=== PATIENT | male | born 1960 | race Caucasian/White ===

== ENCOUNTER 2016-11-28 09:16 | Observation (INO) | payer BC ==
[~2016-11-28] VITALS: Ht 175.3 cm; Wt 115.7 kg
[~2016-11-28 09:16] MED LIST: DULO30CA; ENAL5TAB PO; ESCI20TA2 PO
[2016-11-28] MEDS ORDERED: PATIENT MAY USE OWN MEDS, ALL PO SCH (09:30)
--- NOTE | 2016-11-28 09:37 | History & Physicial ---
History of Present Illness History of Present Illness Reason for visit/HPI 56-year-old male presents to office today with reports of painful right neck. He does report he thinks he may have an abscess starting. He reported the pain was fairly significant last night and it has extended down the anterior midportion of his neck as well. He denies any fever and there has been no drainage from the area on the right side of the neck posteriorly. He thought perhaps a while back there may have been something small in the area. He does do quite a bit of hunting and he does wrap up fairly tight around the neck due to the cold weather. Date of Admission November 28, 2016 I consulted on this patient on 11/28/16 09:33 Attending Physician Darlin Felix MD Admitting Physician Darlin Felix MD Consult Josh Garcia Allergies and Home Medications Allergies Coded Allergies: No Known Drug Allergies (Verified , 03/06/16) Home Medications Enalapril Maleate 5 Mg Tablet 2.5 MG PO DAILY (Reported) Escitalopram Oxalate 20 Mg Tablet 20 MG PO DAILY (Reported) Past Tqsnufw-Sjtjfk-Kypbzw Hx Patient Social History Marrital Status: Number of Children: 3 Number of living children: 3 Employed/Student: employed Recreational Drug Use: No Surgeries HX Surgeries: No (SX ON FINGER ON L HAND, BASKET KIDNEY STONES X2) Respiratory Hx Respiratory Disorders: Yes (SLEEP APNEA-CPAP) Cardiovascular Hx Cardiovascular Disorders: No Neurological Hx Neurological Disorders: Yes (ANXIETY ) Reproductive System Hx Reproductive Disorders: No Genitourinary Hx Genitourinary Disorders: Yes (STONES X 2 (BASKET DONE X 2)) Genitourinary Disorders: Kidney Stones, Epi/Hypospadias Gastrointestinal Hx Gastrointestinal Disorders: Yes Gastrointestinal Disorders: Gall Bladder Disease Musculoskeletal Hx Musculoskeletal Disorders: No Musculoskeletal Disorders: Osteoporosis, Arthritis Endocrine Hx Endocrine Disorders: No HEENT HX ENT Disorders: No Cancer Hx Cancer: No Psychosocial Hx Psychiatric Problems: Yes Behavioral Health Disorders: Anxiety Integumentary HX Skin/Integumentary Disorder: No Blood Transfusions Hx Blood Disorders: No Family Medical History Family Hx: Diabetes mellitus 19 MOTHER Constitutional: see HPI Physical Exam Vital Signs Capillary Refill : General Appearance: No Apparent Distress Eyes: Bilateral Eye Normal Inspection HEENT: TMs Normal Neck: Other (patient has a 6 cm x 6 cm area primarily firmwith overlying erythema to the posterior right neck.) Respiratory: Lungs Clear Cardiovascular: Regular Rate, Rhythm Gastrointestinal: Soft Rectal: Deferred Skin: Normal Color Assessment/Plan Assessment and Plan 1. Abscess right posterior neckextensive -patient to be admitted for observation -IV to be started with antibiotics after evaluation by surgery -Surgical consultation with Dr. Garcia -Patient to have CT of the neck to further clarify the extent of the abscess. Admission Diagnosis 1. Abscess right posterior neckextensive DARLIN FELIX MD Nov 28, 2016 09:37
--- OUTSIDE RECORDS SUMMARY | 2016-11-28 10:17 | XMS REPORT | Continuity of Care Document ---
Author Author [facility] Organization [facility] Address Unknown Phone Unavailable Care Team Providers Care Retail Team Member Name Role Phone DARLIN FELIX MD PCP Insurance Providers Payer Name Policy Number Subscriber Name Relationship [facility] [id number] Ulysses Mullen 18 Self / Same As Patient Advance Directives Directive Response Recorded Date/Time Advance Directives No 04/13/15 12:24pm Resuscitation Status Full Code 04/13/15 12:24pm Problems No known problems or medical conditions. Medications Medication Dose Route Sig Days/Qty Instructions Order Date Discontinued Date Status Duloxetine HCl 08/20/08 04/13/15 Discontinued Escitalopram Oxalate 1 Each PO DAILY 30 Qty 04/13/15 04/13/15 Discontinued Escitalopram Oxalate 20 Mg PO DAILY 04/13/15 Active Social History Social History Problem Response Recorded Date/Time Recent Foreign Travel No 04/13/2015 12:36pm Recent Infectious Disease Exposure No 04/13/2015 12:25pm Hospitalization with Isolation Denies 04/15/2015 6:12pm Smoking Status Never a Smoker 04/13/2015 12:33pm Query Response Start Date Stop Date Smoking Status Never a Smoker Hospital Discharge Instructions No hospital discharge instructions. Plan of Care Discharge Date 04/15/15 3:35pm Disposition 30 STILL A PATIENT Instructions/Education Provided Hydrocele (GEN) Forms Provided PDI Surgical Prescriptions See Medications Section Functional Status No functional status results. Allergies, Adverse Reactions, Alerts Allergen Type Severity Reaction Status Last Updated No Known Drug Allergies Allergy Unknown Active 08/20/08 Immunizations No immunization records. Vital Signs Acute Vital Signs Vital Response Date/Time Temperature (Fahrenheit) 98.6 degrees F (97.6 - 99.5) Temperature (Calculated Celsius) 37.17014 degrees C (36.4 - 37.5) Temperature Source Tympanic Pulse Rate (adult) 81 bpm (60 - 90) Respiratory Rate 20 bpm (12 - 24) O2 Sat by Pulse Oximetry 91 % (88 - 100) Blood Pressure 118/82 mm Hg Pain Pain Intensity 4 Height (Feet) 5 feet Height (Inches) 9.00 inches Height (Calculated Centimeters) 175.331967 cm Weight (Pounds) 263 pounds Weight (Calculated Grams) 745880.794 gm Weight (Calculated Kilograms) 119.741185 kilograms Calculated BMI 38.83 Results Laboratory Results Test Name Result Units Flags Reference Collection Date/Time Result Date/ Time Comments White Blood Count 11.1 10^3/uL H 4.3-11.0 04/15/2015 10:36am 04/15/2015 10:44am Red Blood Count 5.23 10^6/uL 4.35-5.85 04/15/2015 10:36am 04/15/2015 10 :44am Hemoglobin 15.0 G/DL 13.3-17.7 04/15/2015 10:3604/15/2015 10:44am Hematocrit 45 % 40-54 04/15/2015 10:36am 04/15/2015 10:44am Mean Corpuscular Volume 86 FL 80-99 04/15/2015 10:36am 04/15/2015 10: 44am Mean Corpuscular Hemoglobin 29 PG 25-34 04/15/2015 10:36am 04/15/2015 10:44am Mean Corpuscular Hemoglobin Concent 34 G/DL 32-36 04/15/2015 10:36am 10:44am Red Cell Distribution Width 13.3 % 10.0-14.5 04/15/2015 10:36am 2014 10:44am Platelet Count 186 10^3/uL 130-400 04/15/2015 10:36am 04/15/2015 10: 44am Mean Platelet Volume 9.2 FL 7.4-10.4 04/15/2015 10:36am 04/15/2015 10: 44am Neutrophils (%) (Auto) 69 % 42-75 04/13/2015 1:pm 04/13/2015 1:52pm Lymphocytes (%) (Auto) 21 % 12-44 04/13/2015 1:pm 04/13/2015 1:52pm Monocytes (%) (Auto) 9 % 0-12 04/13/2015 1:04/13/2015 1:52pm Eosinophils (%) (Auto) 1 % 0-10 04/13/2015 1:pm 04/13/2015 1:52pm Basophils (%) (Auto) 1 % 0-10 04/13/2015 1:04/13/2015 1:52pm Neutrophils # (Auto) 4.7 X 10^3 1.8-7.8 04/13/2015 1:pm 04/13/2015 1: 52pm Lymphocytes # (Auto) 1.4 X 10^3 1.0-4.0 04/13/2015 1:04/13/2015 1: 52pm Monocytes # (Auto) 0.6 X 10^3 0.0-1.0 04/13/2015 1:pm 04/13/2015 1: 52pm Eosinophils # (Auto) 0.1 10^3/uL 0.0-0.3 04/13/2015 1:pm 04/13/2015 1 :52pm Basophils # (Auto) 0.0 10^3/uL 0.0-0.1 04/13/2015 1:pm 04/13/2015 1: 52pm Sodium Level 142 MMOL/L 135-145 04/13/2015 1:04/13/2015 2:07pm Potassium Level 4.0 MMOL/L 3.6-5.0 04/13/2015 1:04/13/2015 2:07pm Chloride Level 106 MMOL/L 98-107 04/13/2015 1:04/13/2015 2:07pm Carbon Dioxide Level 26 MMOL/L 21-32 04/13/2015 1:04/13/2015 2: 07pm Blood Urea Nitrogen 14 MG/DL 7-18 04/13/2015 1:04/13/2015 2:07pm Creatinine 0.93 MG/DL 0.60-1.30 04/13/2015 1:20pm 04/13/2015 2:07pm BUN/Creatinine Ratio 15 04/13/2015 1:20pm 04/13/2015 2:07pm Estimat Glomerular Filtration Rate > 60 04/13/2015 1:20pm 2014 2:07pm GFR INTERPRETIVE DATA UNITS FOR ESTIMATED GFR (eGFR): mL/min/1.73 M2 REFERENCE RANGE FOR ESTIMATED GFR (eGFR) eGFR NORMAL eGFR >60 MODERATELY DECREASED eGFR 30-59 SEVERLY DECREASED eGFR 15-29 KIDNEY FAILURE <15 (OR DIALYSIS) Glucose Level 84 MG/DL 70-105 04/13/2015 1:20pm 04/13/2015 2:07pm Calcium Level 9.2 MG/DL 8.5-10.1 04/13/2015 1:20pm 04/13/2015 2:07pm Random Gentamicin Level 3.2 UG/ML <=10.0 04/14/2015 12:57am 04/14/2015 1:24am Procedures No known history of procedures. Encounters Encounter Location Date/Time Discharged Inpatient Via [facility] 04/13/15 11:33am Registered Clinic [facility] 04/02/15 8:58am
[2016-11-28 10:37] LABS: BASOPHILS % (AUTO) 0 % (0-10); EOSINOPHILS # (AUTO) 0.1 10^3/uL (0.0-0.3); EOSINOPHILS % (AUTO) 1 % (0-10); LYMPHOCYTES # (AUTO) 0.9 X 10^3 (1.0-4.0); LYMPHOCYTES % (AUTO) 10 % (12-44); MEAN CORPUSCULAR HEMOGLOBIN 29 PG (25-34); MEAN CORPUSCULAR HGB CONC 34 G/DL (32-36); MEAN CORPUSCULAR VOLUME 86 FL (80-99); MEAN PLATELET VOLUME 9.5 FL (7.4-10.4); MONOCYTES # (AUTO) 0.8 X 10^3 (0.0-1.0); MONOCYTES % (AUTO) 9 % (0-12); NEUTROPHILS # (AUTO) 7.5 X 10^3 (1.8-7.8); NEUTROPHILS % (AUTO) 80 % (42-75); PLATELET COUNT 213 10^3/uL (130-400); RED BLOOD COUNT 5.34 10^6/uL (4.35-5.85); RED CELL DISTRIBUTION WIDTH 13.4 % (10.0-14.5); WHITE BLOOD COUNT 9.4 10^3/uL (4.3-11.0)
[2016-11-28 10:47] VITALS: BP 133/79
[2016-11-28 11:07] LABS: ANION GAP 9 MMOL/L (5-14); BLOOD UREA NITROGEN 15 MG/DL (7-18); BUN/CREATININE RATIO 14; CALCIUM 9.1 MG/DL (8.5-10.1); CARBON DIOXIDE 21 MMOL/L (21-32); CHLORIDE 105 MMOL/L (98-107); GFR ESTIMATED > 60; GLUCOSE 107 MG/DL (70-105); SODIUM 135 MMOL/L (135-145)
[2016-11-28 11:11] LABS: POTASSIUM 5.3 MMOL/L (3.6-5.0)
[2016-11-28] MEDS ORDERED: IOHEXOL 350 MG/ML 100 ML (OMNIPAQUE 350) VIAL IV ONE (11:15)
[2016-11-28] MEDS ORDERED: NS 100 ML (IVPB) BAG IV ONE (11:15)
--- NOTE | 2016-11-28 11:19 | Consultation ---
History of Present Illness History of Present Illness Patient Consulted On(nancy/time) 11/28/16 11:15 Date of Admission History of Present Illness This is a 56-year-old male patient who presented to Dr. Hsu's office today with possible abscess to the right of his neck. Patient reported that it has been painful. He states that he noticed a little bump to the right side of his neck on Thursday. Patient reports he thought it was a pimple and that the spot grew bigger. Patient states that by about Thursday he tried to drain it with no success. Patient reports that by and Thursday the right side of his neck had become painful to touch with the area getting bigger. He also reports difficulty with sleeping last night. he reports slight fever last night. The abscess area is noted to be anterior midportion of his right neck. Induration noted to the right side neck. Patient is tender with palpation to the base of his skull (right side) There is some redness noted around the area. It is painful to touch. Minimal drainage is noted. Allergies and Home Medications Allergies Coded Allergies: No Known Drug Allergies (Verified , 03/06/16) Home Medications Enalapril Maleate 5 Mg Tablet 2.5 MG PO DAILY (Reported) TAKES 1/2 OF A (5 MG) TABLET Escitalopram Oxalate 20 Mg Tablet 20 MG PO DAILY (Reported) Naproxen Sodium 220 Mg Tablet 440 MG PO BID PRN PRN PAIN (Reported) Past Chuupon-Pzadlg-Ckrfpe Hx Patient Social History Recreational Drug Use: No Recent Foreign Travel: No Contact w/Someone Who Travel: No Surgeries HX Surgeries: No (SX ON FINGER ON L HAND, BASKET KIDNEY STONES X2) Respiratory Hx Respiratory Disorders: Yes (SLEEP APNEA-CPAP) Cardiovascular Hx Cardiac Disorders: No Neurological Hx Neurological Disorders: Yes (ANXIETY ) Reproductive System Hx Reproductive Disorders: No Genitourinary Hx Genitourinary Disorders: Yes (STONES X 2 (BASKET DONE X 2)) Genitourinary Disorders: Kidney Stones, Epi/Hypospadias Gastrointestinal Hx Gastrointestinal Disorders: Yes Gastrointestinal Disorders: Gall Bladder Disease Musculoskeletal Hx Musculoskeletal Disorders: No Musculoskeletal Disorders: Osteoporosis, Arthritis Endocrine Hx Endocrine Disorders: No HEENT HX ENT Disorders: No Cancer Hx Cancer: No Psychosocial Hx Psychiatric Problems: Yes Behavioral Health Disorders: Anxiety Integumentary HX Skin/Integumentary Disorder: No Blood Transfusions Hx Blood Disorders: No Family Medical History Significant Family History: No Pertinent Family Hx Family Medial History: Diabetes mellitus 19 MOTHER Review of Systems-General Constitutional: fever EENTM: other (Right neck midportion swollen, painful with redness) Respiratory: no symptoms reported Cardiovascular: no symptoms reported Gastrointestinal: no symptoms reported Genitourinary: no symptoms reported Musculoskeletal: neck pain (right neck pain) Skin: other (redness in the right neck) Psychiatric/Neurological: No Symptoms Reported Physical Exam-General Problems Physical Exam Vital Signs Vital Sign - Last 12Hours 11/28/16 10:47 Temp 100.2 Pulse 80 Resp 20 B/P 133/79 Pulse Ox 95 O2 Delivery Room Air Capillary Refill : General Appearance: no apparent distress Neck: other (tenderness to the right neck, swollen, redness) Respiratory: no respiratory distress no accessory muscle use Cardiovascular: regular rate, rhythm Gastrointestinal: non tender soft no organomegaly no pulsatile mass Extremities: normal range of motion no pedal edema no calf tenderness normal capillary refill Neurologic/Psychiatric: alert normal mood/affect Skin: normal color Data Review Labs Laboratory Tests Test 11/28/16 10:32 Range/Units Anion Gap 9 5-14 MMOL/L BUN/Creatinine Ratio 14 Basophils # (Auto) 0.0 0.0-0.1 10^3/uL Basophils (%) (Auto) 0 0-10 % Blood Urea Nitrogen 15 7-18 MG/DL Calcium Level 9.1 8.5-10.1 MG/DL Carbon Dioxide Level 21 21-32 MMOL/L Chloride Level 105 98-107 MMOL/L Creatinine 1.10 0.60-1.30 MG/DL Eosinophils # (Auto) 0.1 0.0-0.3 10^3/uL Eosinophils (%) (Auto) 1 0-10 % Estimat Glomerular Filtration Rate > 60 Glucose Level 107 H 70-105 MG/DL Hematocrit 46 40-54 % Hemoglobin 15.6 13.3-17.7 G/DL Lymphocytes # (Auto) 0.9 L 1.0-4.0 X 10^3 Lymphocytes (%) (Auto) 10 L 12-44 % Mean Corpuscular Hemoglobin 29 25-34 PG Mean Corpuscular Hemoglobin Concent 34 32-36 G/DL Mean Corpuscular Volume 86 80-99 FL Mean Platelet Volume 9.5 7.4-10.4 FL Monocytes # (Auto) 0.8 0.0-1.0 X 10^3 Monocytes (%) (Auto) 9 0-12 % Neutrophils # (Auto) 7.5 1.8-7.8 X 10^3 Neutrophils (%) (Auto) 80 H 42-75 % Platelet Count 213 130-400 10^3/uL Potassium Level 5.3 H 3.6-5.0 MMOL/L Red Blood Count 5.34 4.35-5.85 10^6/uL Red Cell Distribution Width 13.4 10.0-14.5 % Sodium Level 135 135-145 MMOL/L White Blood Count 9.4 4.3-11.0 10^3/uL Laboratory Tests 11/28/16 10:32: Anion Gap 9, BUN/Creatinine Ratio 14, Basophils # (Auto) 0.0, Basophils (%) ( Auto) 0, Blood Urea Nitrogen 15, Calcium Level 9.1, Carbon Dioxide Level 21, Chloride Level 105, Creatinine 1.10, Eosinophils # (Auto) 0.1, Eosinophils (%) ( Auto) 1, Estimat Glomerular Filtration Rate > 60, Glucose Level 107H, Hematocrit 46, Hemoglobin 15.6, Lymphocytes # (Auto) 0.9L, Lymphocytes (%) (Auto ) 10L, Mean Corpuscular Hemoglobin 29, Mean Corpuscular Hemoglobin Concent 34, Mean Corpuscular Volume 86, Mean Platelet Volume 9.5, Monocytes # (Auto) 0.8, Monocytes (%) (Auto) 9, Neutrophils # (Auto) 7.5, Neutrophils (%) (Auto) 80H, Platelet Count 213, Potassium Level 5.3H, Red Blood Count 5.34, Red Cell Distribution Width 13.4, Sodium Level 135, White Blood Count 9.4 Assessment/Plan Assessment/Plan Assessment/Plan possible right neck abscess. waiting on [facility] labs to be processed. After that CT of Neck with Contrast. Garcia- patient is a 56 year old male that began having pain and redness to right side of neck starting last Thursday. It continued to worsen and he attempted to pop it without any success. Yesterday evening it got significantly larger and increasing pain along right neck. Barnard feverish. Had i and d attempted today without success. Denies n/v sweats chills shortness of breath or chest pain at this time. general no acute distress head ncat eyes nonicteric nares patent mouth moist neck right side with with induration and erythema, small opening from previous attempt of i and d tender to palpation, no purulent drainage, no fluctuance heart regular lungs nonlabored abdomen soft nontender ext nontender normal mood/affect skin with erythematous changes right side of neck CT- scan demonstrating changes consistent with cellulitis, no abscess of right posterior neck a/p Cellulitis right neck, no abscess at this time. Vancomycin pharmacy to dose, warm compresses, no surgical intervention at this time. ANALILIA HELM APRN Nov 28, 2016 11:19 TANIKA GRACIA DO Nov 28, 2016 16:14
[2016-11-28] MEDS: NS IV 1000 ML 1,000 ML IV SCH ×3 (11:54→23:42)
[2016-11-28 12:00] VITALS: BP 133/70
--- NOTE | 2016-11-28 12:11 | Diagnostic Imaging Report ---
PROCEDURE: CT neck soft tissue with contrast. TECHNIQUE: Multiple contiguous axial images were obtained through the neck after the administration of contrast. INDICATION: Inflammation in the right side of the neck. Evaluate for possible abscess. 75 mL of Omnipaque 350 is administered intravenously. FINDINGS: There is skin thickening and subcutaneous inflammation noted compatible with cellulitis. No fluid collection or abscess is seen. Minimal asymmetric prominence of lymph nodes is seen are reactive without significant enlargement in the cervical chain seen on either side. The parotid glands and the submandibular glands appear symmetric. The internal jugular veins and the carotid arteries appear grossly unremarkable. The thyroid gland appears unremarkable. The mucosal pharyngeal space demonstrates no definite mass. The lung apices appear clear. The visualized portions of the paranasal sinuses demonstrate a 2 cm mucous retention cyst in the left maxillary sinus and mild mucosal thickening in the right maxillary sinus. The osseous structures demonstrate degenerative changes in the mid to lower cervical spine levels. IMPRESSION: There is upper right neck cellulitis along the posterior aspect with no fluid collection or abscess seen. Minimal maxillary sinus disease. Dictated by: Dictated on workstation # [id number]
[2016-11-28] MEDS ORDERED: VANCOMYCIN INJECTION 2,500 MG in NS IV 500 ML 500 ML IV SCH (12:16)
[2016-11-28] MEDS ORDERED: NAPR220T66 PO (13:00)
[2016-11-28] MEDS ORDERED: ESCI20TA PO (13:00)
[2016-11-28 16:30] VITALS: BP 135/75
[2016-11-28] MEDS ORDERED: ACETAMINOPHEN 325 MG TABLET/CAPLET (TYLENOL) ONE (17:39)
[2016-11-28] MEDS: ACETAMINOPHEN 325 MG TABLET/CAPLET (TYLENOL) PO PRN (17:49)
[2016-11-28] MEDS ORDERED: CATHETER FLUSH 10 ML SYR IV PRN (18:00)
[2016-11-28 19:50] VITALS: BP 132/75
[2016-11-28] MEDS: VANCOMYCIN 1,750 MG/NS 500 ML IVPB IV SCH ×2 (23:43)
[2016-11-29] VITALS: BP 113/65
[2016-11-29 04:00] VITALS: BP 157/93
[2016-11-29] MEDS: ACETAMINOPHEN 325 MG TABLET/CAPLET (TYLENOL) PO PRN (07:52)
[2016-11-29 08:00] VITALS: BP 148/81
[2016-11-29] MEDS ORDERED: NAPROXEN 250 MG (NAPROSYN) TABLET PO PRN (08:15)
[2016-11-29 08:25] LABS: ANION GAP 10 MMOL/L (5-14); BLOOD UREA NITROGEN 13 MG/DL (7-18); BUN/CREATININE RATIO 14; CALCIUM 8.8 MG/DL (8.5-10.1); CARBON DIOXIDE 21 MMOL/L (21-32); CHLORIDE 108 MMOL/L (98-107); CREATININE SERUM 0.93 MG/DL (0.60-1.30); GFR ESTIMATED > 60; GLUCOSE 161 MG/DL (70-105); SODIUM 139 MMOL/L (135-145)
[2016-11-29] MEDS: ENALAPRIL 2.5 MG (VASOTEC) TAB PO SCH ×2 (09:00→09:56)
[2016-11-29] MEDS ORDERED: CLIN300C11 PO (10:51)
--- NOTE | 2016-11-29 10:55 | Discharge Instructions ---
Discharge Inst-[facility] Discharge Medications New, Converted or Re-Newed RX: Call to Patients Pharmacy New Medications: Clindamycin HCl (Clindamycin HCl) 300 Mg Capsule 300 MG PO Q6H Days 10 CAP Continued Medications: Enalapril Maleate (Enalapril Maleate) 5 Mg Tablet 2.5 MG PO DAILY TAKES 1/2 OF A (5 MG) TABLET TAB Escitalopram Oxalate (Lexapro) 20 Mg Tablet 20 MG PO DAILY Naproxen Sodium (Aleve) 220 Mg Tablet 440 MG PO BID PRN PAIN TAB Patient Instructions Goal/Follow Up Appt: - Please call on Thursday and get appt with Dr Felix so he can examine cellulitis Patient Instructions: - Continue warm compresses to neck at least 3 time per day - Tylenol and ibuprofen for pain control - Encouraged to take probiotic tablet or eat live cultured yogurt while on antibiotics Return to The Hospital For: Uncontrolled pain - Unable to tolerate antibiotics Activity & Diet Discharge Diet: No Restrictions Activity as Tolerated: Yes Copy Copies To 1: DARLIN FELIX MD, HOLLY R MD Nov 29, 2016 10:55
--- NOTE | 2016-11-29 10:55 | Discharge Summary ---
Diagnosis/Chief Complaint Date of Admission Nov 28, 2016 at 10:06 Date of Discharge nov 29 2016 Admission Diagnosis Admission Diagnosis Neck Cellulitis HTN Discharge Diagnosis See above Chief Complaint/HPI Chief Complaint/HPI 56 yo M that was direct admit from Dr Felix for concerns of Neck abcess. Patient states that pain has been increasing and redness getting worse the last few days. Discharge Summary-Simple/Stand Consultations Surgery Discharge Physical Examination Allergies: Coded Allergies: No Known Drug Allergies (Verified , 03/06/16) Vitals & I&Os Vital Sign - Last 12Hours Date Time Temp Pulse Resp B/P Pulse Ox O2 Delivery O2 Flow Rate FiO2 11/29/16 08:00 96.8 82 20 148/81 94 Room Air Intake and Output 11/29/16 00:00 Intake Total 3355 ml Output Total 600 ml Balance 2755 ml General Appearance: Alert, Oriented X3, Cooperative, No Acute Distress HEENT: Atraumatic, Mucous Memb Moist/Raymer Respiratory: Clear to Auscultation, Normal Air Movement Cardiovascular: Regular Rate, Normal S1, Normal S2, No Murmurs Abdominal: Normal Bowel Sounds, Soft, No Tenderness, No Masses Extremities: No Edema, No Tenderness/Swelling Skin: Other (R side of neck with erythema, induration and palpable LN) Neuro: Normal Speech, Strength at 5/5 X4 Ext, Cranial Nerves 3-12 NL Psych/Mental Status: Mental Status NL, Mood NL Hospital Course See final discharge diagnosis. Radiology Reviewed Date of Exam: 11/28/16 CT NECK (SOFT TISSUE) W PROCEDURE: CT neck soft tissue with contrast. TECHNIQUE: Multiple contiguous axial images were obtained through the neck after the administration of contrast. INDICATION: Inflammation in the right side of the neck. Evaluate for possible abscess. 75 mL of Omnipaque 350 is administered intravenously. FINDINGS: There is skin thickening and subcutaneous inflammation noted compatible with cellulitis. No fluid collection or abscess is seen. Minimal asymmetric prominence of lymph nodes is seen are reactive without significant enlargement in the cervical chain seen on either side. The parotid glands and the submandibular glands appear symmetric. The internal jugular veins and the carotid arteries appear grossly unremarkable. The thyroid gland appears unremarkable. The mucosal pharyngeal space demonstrates no definite mass. The lung apices appear clear. The visualized portions of the paranasal sinuses demonstrate a 2 cm mucous retention cyst in the left maxillary sinus and mild mucosal thickening in the right maxillary sinus. The osseous structures demonstrate degenerative changes in the mid to lower cervical spine levels. IMPRESSION: There is upper right neck cellulitis along the posterior aspect with no fluid collection or abscess seen. Minimal maxillary sinus disease. Discussion & Recommendations 56 yo M with cellulitis of his neck. Placed on IV antibiotics and pain and erythema much improved after 3 doses. Patient sent home on PO antibiotics to cover for MRSA. Pain well controlled at time of discharge. Discharge Condition at discharge Improved Instructions to patient/family Please see electonic discharge instructions given to patient. Discharge Medications Reviewed and agree with Discharge Medication list on patient's Discharge Instruction sheet Clinical Quality Measures DVT/VTE Risk/Contraindication: Risk Factor Score Per Nursin RFS Level Per Nursing on Admit: 2=Moderate Copy Copies To 1: DARLIN FELIX MD, HOLLY R MD Nov 29, 2016 10:55
--- NOTE | 2016-11-29 11:01 | Progress Note ---
Subjective Subjective/Events-last exam Pt seen and examined. States he still has some neck pain, but thinks it is much better than yesterday and swelling down also. He states it has stopped draining. He is tolerating diet. Would like to go home. Review of Systems General: No Chills, No Night Sweats HEENT: No Head Aches, No Visual Changes Pulmonary: No Dyspnea, No Cough Cardiovascular: No: Chest Pain, Palpitations Gastrointestinal: No: Abdominal Pain, Nausea, Vomiting Musculoskeletal: : neck pain Neurological: No: Numbness, Weakness Objective Exam Vital Signs Date Time Temp Pulse Resp B/P Pulse Ox O2 Delivery O2 Flow Rate FiO2 11/29/16 08:00 96.8 82 20 148/81 94 Room Air 11/29/16 04:00 98.9 83 20 157/93 97 Room Air 11/29/16 00:00 99.8 77 20 113/65 95 Room Air 11/28/16 21:08 Room Air 11/28/16 19:50 98.5 88 16 132/75 95 Room Air 11/28/16 16:30 99.6 86 18 135/75 97 Room Air 11/28/16 13:45 Room Air 11/28/16 12:00 98.4 97 20 133/70 97 Room Air I & O 11/29/16 07:00 Intake Total 4205 ml Output Total 1350 ml Balance 2855 ml Capillary Refill : General Appearance: No Apparent Distress WD/WN HEENT: TMs Normal Pharynx Normal Neck: Other (patient has a 6 cm x 6 cm area primarily firm with overlying erythema to the posterior right neck; it is tender to the touch, scab at top of area closer to ear where attempted drainage was. No fluctuance.) Respiratory: Lungs Clear No Accessory Muscle Use Cardiovascular: Regular Rate, Rhythm No Murmur Gastrointestinal: non tender soft no organomegaly no pulsatile mass Extremity: Normal Range of Motion Non Tender No Calf Tenderness Neurologic/Psychiatric: Alert Oriented x3 cement paver II-XII Norm as Tested Skin: Normal Color Results Lab Laboratory Tests 11/29/16 08:05: Anion Gap 10, BUN/Creatinine Ratio 14, Blood Urea Nitrogen 13, Calcium Level 8.8 , Carbon Dioxide Level 21, Chloride Level 108H, Creatinine 0.93, Estimat Glomerular Filtration Rate > 60, Glucose Level 161H, Potassium Level 4.0, Sodium Level 139 Assessment/Plan Assessment/Plan Assessment/Plan Cellulitis right neck, no abscess at this time. Continue Vancomycin; no surgical intervention at this time. Would continue warm compresses to try and have scab fall off and allow more drainage. Unfortunately I cannot find if a culture was performed. Would probably assume MRSA and treat with Bactrim and/or Clindamycin orally when sent home. Monitor area, it still may form an abscess and need to be drained. Clinical Quality Measures DVT/VTE Risk/Contraindication: Risk Factor Score Per Nursin RFS Level Per Nursing on Admit: 2=Moderate MARLIN MOROCHO DO Nov 29, 2016 11:01
[2016-11-29] MEDS: NS IV 1000 ML 1,000 ML IV SCH (11:24)
[2016-11-29] MEDS: VANCOMYCIN 1,750 MG/NS 500 ML IVPB IV SCH ×2 (11:34)
[2016-11-29 12:00] VITALS: BP 125/75
[2016-11-29 15:40] VITALS: BP 125/75
== END 2016-11-29 10:51 | disposition home or self-care (01) ==
LOC: UNDOADMOB 10:06 → 4TH 10:06 → UNDODISOB 11-29 15:40
PROVIDERS: ADMIT Family Medicine; ATTEND Family Medicine
DX: L03.221 Cellulitis of neck (principal); I10 Essential (primary) hypertension
CPT/HCPCS: 36415; 70491; 80048; 85025; 99211; G0378

== ENCOUNTER 2016-12-04 18:15 | Emergency (ER) | payer BC ==
[~2016-12-04] VITALS: Ht 175.3 cm; Wt 115.7 kg
[~2016-12-04 18:15] MED LIST changes: +CLIN300C11 PO; +ESCI20TA PO; +NAPR220T66 PO
--- OUTSIDE RECORDS SUMMARY | 2016-12-04 18:20 | XMS REPORT | Continuity of Care Document ---
Author Author [facility] Organization [facility] Address Unknown Phone Unavailable Care Team Providers Care Fax Machine Operator Name Role Phone DARLIN FELIX MD PCP Insurance Providers Payer Name Policy Number Subscriber Name Relationship Self Pay Ulysses Mullen 18 Self / Same As Patient Advance Directives Directive Response Recorded Date/Time Advance Directives No 11/28/16 11:53am Health Care Power of Lime Puller No 03/10/16 8:25am Organ Donor No 03/10/16 8:25am Resuscitation Status Full Code 11/28/16 11:53am Chief Complaint and Reason for Visit Chief Complaint NECK ABSCESS Reason for Visit Abscess of neck Problems Active Problems Medical Problem Onset Date Status Abscess of neck Unknown Acute Medications Current Home Medications Medication Dose Units Route Directions Days/Qty Instructions Start Date Enalapril Maleate 5 Mg 2.5 Mg Oral Daily TAKES 1/2 OF A (5 MG) TABLET 03/06/16 Escitalopram Oxalate 20 Mg 20 Mg Oral Daily 11/28/16 Naproxen Sodium 220 Mg 440 Mg Oral Twice A Day as needed for Pain Clindamycin Hcl 300 Mg 300 Mg Oral Every 6 Hours 10 Days 11/29/16 Past Home Medications Medication Directions Ordered Status Duloxetine Hcl 30 Mg Cap, 08/20/08 Discontinued Escitalopram Oxalate 20 Mg Tablet, 1 Each Oral Daily 04/13/15 Discontinued Escitalopram Oxalate 20 Mg Tablet, 20 Mg Oral Daily 04/13/15 Discontinued Social History Social History Problem Response Recorded Date/Time Alcohol Use Rarely Uses 11/28/2016 11:49am Recreational Drug Use No 11/28/2016 11:49am Recent Foreign Travel No 11/28/2016 11:40am Recent Infectious Disease Exposure No 11/28/2016 11:40am Smoking Status Never a Smoker 11/28/2016 11:47am Do you dip or chew tobacco? No 03/10/2016 8:23am Recent Hopitalizations Yes 11/28/2016 11:49am Query Response Start Date Stop Date Smoking Status Never a Smoker Hospital Discharge Instructions Patient Instructions Physician Instructions New, Converted or Re-Newed RX: Call to Patients Pharmacy Goal/Follow Up Appt: - Please call on Thursday and get appt with Dr Felix so he can examine cellulitis Patient Instructions: - Continue warm compresses to neck at least 3 time per day - Tylenol and ibuprofen for pain control - Encouraged to take probiotic tablet or eat live cultured yogurt while on antibiotics Return to The Hospital For: Uncontrolled pain - Unable to tolerate antibiotics Discharge Diet: No Restrictions Activity as Tolerated: Yes Care Plan Patient Instructions:: - Continue warm compresses to neck at least 3 time per day- Tylenol and ibuprofen for pain control- Encouraged to take probiotic tablet or eat live cultured yogurt while onantibiotics Goal:: - Please call on Thursday and get appt with Dr Felix so he can examine cellulitis Plan of Care Discharge Date 11/29/16 3:40pm Disposition 01 HOME, SELF-CARE Instructions/Education Provided Cellulitis (Skin Infection), Adult (DC) Prescriptions See Medication Section Care Plan and Goals See Discharge Instructions Section Functional Status Query Response Date Recorded Patient Orientation Person Place Time Situation Eyes Open November 29, 2016 6:37pm Comprehension Ability Understands Concepts November 28, 2016 1:45pm Allergies, Adverse Reactions, Alerts No known allergies. Immunizations No immunization records. Vital Signs Acute Vital Signs Vital Response Date/Time Temperature (Fahrenheit) 98.6 degrees F (97.6 - 99.5) 11/29/2016 3:40pm Temperature (Calculated Celsius) 37.72261 degrees C (36.4 - 37.5) 11/29/2016 12:00pm Temperature Source Tympanic 11/29/2016 3:40pm Pulse Rate (adult) 74 bpm (60 - 90) 11/29/2016 3:40pm Respiratory Rate 20 bpm (12 - 24) 11/29/2016 3:40pm O2 Sat by Pulse Oximetry 95 % (88 - 100) 11/29/2016 3:40pm Blood Pressure 125/75 mm Hg 11/29/2016 3:40pm Blood Pressure Mean 92 mm Hg 11/29/2016 12:00pm Pain Numeric Pain Scale 0-No Pain 11/29/2016 3:40pm Height (Feet) 5 feet 11/28/2016 11:39am Height (Inches) 9.00 inches 11/28/2016 11:39am Height (Calculated Centimeters) 175.638964 cm 11/28/2016 11:39am Weight (Pounds) 255 pounds 11/28/2016 11:39am Weight (Ounces) 0.0 oz 11/28/2016 11:39am Weight (Calculated Grams) 456546.06 gm 11/28/2016 11:39am Weight (Calculated Kilograms) 115.377664 kilograms 11/28/2016 11:39am Calculated BMI 37.7 11/28/2016 11:39am Results Laboratory Results Test Name Result Units Flags Reference Collection Date/Time Result Date/ Time Comments White Blood Count 9.4 10^3/uL 4.3-11.0 11/28/2016 10:32am 11/28/2016 10 :38am Red Blood Count 5.34 10^6/uL 4.35-5.85 11/28/2016 10:32am 11/28/2016 10 :38am Hemoglobin 15.6 G/DL 13.3-17.7 11/28/2016 10:32am 11/28/2016 10:38am Hematocrit 46 % 40-54 11/28/2016 10:32am 11/28/2016 10:38am Mean Corpuscular Volume 86 FL 80-99 11/28/2016 10:32am 11/28/2016 10: 38am Mean Corpuscular Hemoglobin 29 PG 25-34 11/28/2016 10:32am 11/28/2016 10:38am Mean Corpuscular Hemoglobin Concent 34 G/DL 32-36 11/28/2016 10:32am 10:38am Red Cell Distribution Width 13.4 % 10.0-14.5 11/28/2016 10:32am 2016 10:38am Platelet Count 213 10^3/uL 130-400 11/28/2016 10:32am 11/28/2016 10: 38am Mean Platelet Volume 9.5 FL 7.4-10.4 11/28/2016 10:32am 11/28/2016 10: 38am Neutrophils (%) (Auto) 80 % H 42-75 11/28/2016 10:32am 11/28/2016 10: 38am Lymphocytes (%) (Auto) 10 % L 12-44 11/28/2016 10:32am 11/28/2016 10: 38am Monocytes (%) (Auto) 9 % 0-12 11/28/2016 10:32am 11/28/2016 10:38am Eosinophils (%) (Auto) 1 % 0-10 11/28/2016 10:32am 11/28/2016 10:38am Basophils (%) (Auto) 0 % 0-10 11/28/2016 10:32am 11/28/2016 10:38am Neutrophils # (Auto) 7.5 X 10^3 1.8-7.8 11/28/2016 10:32am 11/28/2016 10:38am Lymphocytes # (Auto) 0.9 X 10^3 L 1.0-4.0 11/28/2016 10:32am 11/28/2016 10:38am Monocytes # (Auto) 0.8 X 10^3 0.0-1.0 11/28/2016 10:32am 11/28/2016 10: 38am Eosinophils # (Auto) 0.1 10^3/uL 0.0-0.3 11/28/2016 10:32am 11/28/2016 10:38am Basophils # (Auto) 0.0 10^3/uL 0.0-0.1 11/28/2016 10:32am 11/28/2016 10 :38am Sodium Level 139 MMOL/L 135-145 11/29/2016 8:05am 11/29/2016 8:26am Potassium Level 4.0 MMOL/L 3.6-5.0 11/29/2016 8:05am 11/29/2016 8:26am Chloride Level 108 MMOL/L H 98-107 11/29/2016 8:05am 11/29/2016 8:26am Carbon Dioxide Level 21 MMOL/L 21-32 11/29/2016 8:05am 11/29/2016 8: 26am Anion Gap 10 MMOL/L 5-14 11/29/2016 8:05am 11/29/2016 8:26am Blood Urea Nitrogen 13 MG/DL 7-18 11/29/2016 8:05am 11/29/2016 8:26am Creatinine 0.93 MG/DL 0.60-1.30 11/29/2016 8:05am 11/29/2016 8:26am BUN/Creatinine Ratio 14 11/29/2016 8:05am 11/29/2016 8:26am Estimat Glomerular Filtration Rate > 60 11/29/2016 8:05am 2016 8:26am GFR INTERPRETIVE DATA UNITS FOR ESTIMATED GFR (eGFR): mL/min/1.73 M2 REFERENCE RANGE FOR ESTIMATED GFR (eGFR) eGFR NORMAL eGFR >60 MODERATELY DECREASED eGFR 30-59 SEVERLY DECREASED eGFR 15-29 KIDNEY FAILURE <15 (OR DIALYSIS) Glucose Level 161 MG/DL H 70-105 11/29/2016 8:05am 11/29/2016 8:26am Calcium Level 8.8 MG/DL 8.5-10.1 11/29/2016 8:05am 11/29/2016 8:26am Procedures No known history of procedures. Encounters Encounter Location Arrival/Admit Date Discharge/Depart Date Attending Provider Discharged Inpatient (obs) [facility] 11/28/16 10:06am 11/29/16 3:40pm DARLIN FELIX MD Recent Diagnosis Abscess of neck
[2016-12-04] MEDS ORDERED: LIDOCAINE 2% VISCOUS 15 ML UDC PO ONE (18:30)
[2016-12-04] MEDS ORDERED: ANTACID SUSP 30 ML UDC (MYLANTA) PO ONE (18:30)
--- NOTE | 2016-12-04 18:35 | ED Abdominal Pain ---
General Chief Complaint: Abdominal/GI Problems Stated Complaint: UPPER STOMACH PAIN Source of Information: Patient Exam Limitations: No Limitations History of Present Illness Time Seen By Provider: 18:34 Initial Comments To ER with epigastric abdominal discomfort since 30 this morning. He was admitted to the hospital on 11/29/16 for a cellulitis of the right neck. He was given a mycin and then switch to oral clindamycin. He has had some intermittent upset stomach since starting the oral clindamycin. Today became quite intense. Timing/Duration: Getting Worse, Intermittent Severity/Quality: Moderate Radiation: No Radiation Associated Symptoms: No Fever/Chills, No Nausea/Vomiting Allergies and Home Medications Allergies Coded Allergies: No Known Drug Allergies (Verified , 03/06/16) Home Medications Clindamycin HCl 300 Mg Capsule 10Days 300 MG PO Q6H Prescribed by: JOVI PUGH on 11/29/16 1051 Enalapril Maleate 5 Mg Tablet 2.5 MG PO DAILY (Reported) TAKES 1/2 OF A (5 MG) TABLET Escitalopram Oxalate 20 Mg Tablet 20 MG PO DAILY (Reported) Naproxen Sodium 220 Mg Tablet 440 MG PO BID PRN PRN PAIN (Reported) Review of Systems Constitutional: see HPI EENTM: No Symptoms Reported Respiratory: No Symptoms Reported Cardiovascular: No Symptoms Reported Gastrointestinal: See HPI Abdominal PainDenies Constipated, Denies Diarrhea, Denies Nausea Genitourinary: No Symptoms Reported Musculoskeletal: no symptoms reported Skin: no symptoms reported Psychiatric/Neurological: No Symptoms Reported Endocrine: No Symptoms Reported Past [id number]-[id number]-[id number] Hx Patient Social History Alcohol Use: Occasionally Uses Recreational Drug Use: No Smoking Status: Never a Smoker Recent Foreign Travel: No Contact w/Someone Who Travel: No Recent Hopitalizations: Yes Physical Abuse Screen: No Sexual Abuse: No Immunizations Up To Date Date of Influenza Vaccine: Jul 24, 2016 Seasonal Allergies Seasonal Allergies: No Surgeries HX Surgeries: No (SX ON FINGER ON L HAND, BASKET KIDNEY STONES X2) Respiratory Hx Respiratory Disorders: Yes (SLEEP APNEA-CPAP) Cardiovascular Hx Cardiac Disorders: No Neurological Hx Neurological Disorders: Yes (ANXIETY ) Reproductive System Hx Reproductive Disorders: No Genitourinary Hx Genitourinary Disorders: Yes (STONES X 2 (BASKET DONE X 2)) Genitourinary Disorders: Kidney Stones, Epi/Hypospadias Gastrointestinal Hx Gastrointestinal Disorders: Yes Gastrointestinal Disorders: Gall Bladder Disease Musculoskeletal Hx Musculoskeletal Disorders: Yes Musculoskeletal Disorders: Osteoporosis, Arthritis Endocrine Hx Endocrine Disorders: No HEENT HX ENT Disorders: No Cancer Hx Cancer: No Psychosocial Hx Psychiatric Problems: Yes Behavioral Health Disorders: Anxiety Integumentary HX Skin/Integumentary Disorder: No Blood Transfusions Hx Blood Disorders: No Family Medical History Significant Family History: No Pertinent Family Hx Family Medial History: Diabetes mellitus 17 MOTHER Kidney disease Physical Exam Vital Signs VS - Last 72 Hours, by Label 12/04/16 12/04/16 18:15 18:48 Temp 99.2 Pulse 87 Resp 18 B/P 141/110 163/96 Pulse Ox 98 O2 Delivery Room Air Capillary Refill : General Appearance: WD/WN no apparent distress HEENT: PERRL/EOMI normal ENT inspection Neck: non-tender full range of motion other (there is a 3 cm area of induration well demarcated without erythema or fluctuance to the right lateral neck. Small 2 mm eschar in the center. Patient states this is a tremendous improvement) Respiratory: normal breath sounds no respiratory distress no accessory muscle use Cardiovascular: regular rate, rhythm no murmur Gastrointestinal: normal bowel sounds soft tenderness (epigastric) Extremities: normal range of motion non-tender Neurologic/Psychiatric: alert normal mood/affect oriented x 3 Skin: normal color Progress/Results/Core Measures Results/Orders Lab Results Laboratory Tests Test 12/04/16 18:26 Range/Units Alanine Aminotransferase (ALT/SGPT) 65 H 0-55 U/L Albumin 4.6 H 3.2-4.5 G/DL Alkaline Phosphatase 54 40-136 U/L Amylase Level 51 25-125 U/L Anion Gap 9 5-14 MMOL/L Aspartate Amino Transf (AST/SGOT) 86 H 5-34 U/L BUN/Creatinine Ratio 17 Basophils # (Auto) 0.0 0.0-0.1 10^3/uL Basophils (%) (Auto) 1 0-10 % Blood Urea Nitrogen 21 H 7-18 MG/DL Calcium Level 9.7 8.5-10.1 MG/DL Carbon Dioxide Level 26 21-32 MMOL/L Chloride Level 104 98-107 MMOL/L Creatinine 1.23 0.60-1.30 MG/DL Eosinophils # (Auto) 0.2 0.0-0.3 10^3/uL Eosinophils (%) (Auto) 2 0-10 % Estimat Glomerular Filtration Rate 60 Glucose Level 99 70-105 MG/DL Hematocrit 46 40-54 % Hemoglobin 15.6 13.3-17.7 G/DL Lipase 36 8-78 U/L Lymphocytes # (Auto) 1.8 1.0-4.0 X 10^3 Lymphocytes (%) (Auto) 24 12-44 % Mean Corpuscular Hemoglobin 29 25-34 PG Mean Corpuscular Hemoglobin Concent 34 32-36 G/DL Mean Corpuscular Volume 86 80-99 FL Mean Platelet Volume 8.9 7.4-10.4 FL Monocytes # (Auto) 0.7 0.0-1.0 X 10^3 Monocytes (%) (Auto) 9 0-12 % Neutrophils # (Auto) 4.8 1.8-7.8 X 10^3 Neutrophils (%) (Auto) 64 42-75 % Platelet Count 244 130-400 10^3/uL Potassium Level 3.9 3.6-5.0 MMOL/L Red Blood Count 5.32 4.35-5.85 10^6/uL Red Cell Distribution Width 13.3 10.0-14.5 % Sodium Level 139 135-145 MMOL/L Total Bilirubin 1.1 H 0.1-1.0 MG/DL Total Protein 7.4 6.4-8.2 G/DL White Blood Count 7.4 4.3-11.0 10^3/uL My Orders Orders-BERNABE RUBY APRN Cbc With Automated Diff (12/04/16 18:27) Comprehensive Metabolic Panel (12/04/16 18:27) Lipase (12/04/16 18:27) Amylase (12/04/16 18:27) Antacid Suspension (Mylanta Suspension (12/04/16 18:30) Lidocaine 2% Viscous 15 Ml (Xylocaine Vi (12/04/16 18:30) Saline Lock/Iv-Start (12/04/16 18:40) Us Gallbladder [id number] (12/04/16 19:17) Medications Given in ED Current Medications Medications Dose Ordered Sig/[place] Route Start Time Stop Time Status Last Admin Dose Admin Al Hydrox/Mg Hydrox/Simethicone 30 ml ONCE ONCE PO 12/04/16 18:30 12/04/16 18:31 DC 12/04/16 18:39 30 ML Lidocaine HCl 15 ml ONCE ONCE PO 12/04/16 18:30 12/04/16 18:31 DC 12/04/16 18:39 15 ML Vital Signs/I&O Vital Sign - Last 12Hours 12/04/16 12/04/16 18:15 18:48 Temp 99.2 Pulse 87 Resp 18 B/P 141/110 163/96 Pulse Ox 98 O2 Delivery Room Air Departure Communication Progress Notes 1918- his pain is completely gone after GI cocktail. However, his total bili, AST ALT are slightly elevated so we will get an ultrasound of his gallbladder prior to discharging him home and treating for gastritis. I'm going to stop his clindamycin unchanged Bactrim and add PPI. Impression Impression: Primary Impression: Gastritis Qualified Code: K29.00 - Acute gastritis without bleeding Additional Impression: Medication adverse effect Qualified Code: T88.7XXA - Unspecified adverse effect of drug or medicament, initial encounter Disposition: HOME, SELF-CARE Condition: Stable Decision to Admit Reason: Admit from ER (General) Decision to Admit/Date: Dec 04, 2016 Time/Decision to Admit Time: 19:18 Departure-Patient Inst. Decision time for Depature: 19:26 Referrals: TANIKA GARCIA DANIEL J MD (PCP/Family) Primary Care Physician Patient Instructions: Gastritis (DC) Add. Discharge Instructions: 1. Stop the Clindamycin. Start the new antibotic 2. Return to ER for any concerns 3. Follow up with Dr Garcia next week in regards to the gallbladder. All discharge instructions reviewed with patient and/or family. Voiced understanding. Scripts Sucralfate (Carafate)1 Gm Tablet1 Gm PO ACHS #40 TAB Prov:BERNABE RUBY TALENT ENGINEER 12/04/16 Pantoprazole Sodium (Protonix)40 Mg Tablet.dr40 Mg PO DAILY #20 TAB Prov:BERNABE RUBY TALENT ENGINEER 12/04/16 Sulfamethoxazole/Trimethoprim (Bactrim Ds Tablet)1 Each Tablet1 Each PO BID #10 TAB Prov:BERNABE RUBY TALENT ENGINEER 12/04/16 BERNABE RUBY TALENT ENGINEER Dec 04, 2016 18:35
[2016-12-04 18:44] LABS: BASOPHILS % (AUTO) 1 % (0-10); EOSINOPHILS # (AUTO) 0.2 10^3/uL (0.0-0.3); EOSINOPHILS % (AUTO) 2 % (0-10); LYMPHOCYTES # (AUTO) 1.8 X 10^3 (1.0-4.0); LYMPHOCYTES % (AUTO) 24 % (12-44); MEAN CORPUSCULAR HEMOGLOBIN 29 PG (25-34); MEAN CORPUSCULAR HGB CONC 34 G/DL (32-36); MEAN CORPUSCULAR VOLUME 86 FL (80-99); MEAN PLATELET VOLUME 8.9 FL (7.4-10.4); MONOCYTES # (AUTO) 0.7 X 10^3 (0.0-1.0); MONOCYTES % (AUTO) 9 % (0-12); NEUTROPHILS # (AUTO) 4.8 X 10^3 (1.8-7.8); NEUTROPHILS % (AUTO) 64 % (42-75); PLATELET COUNT 244 10^3/uL (130-400); RED BLOOD COUNT 5.32 10^6/uL (4.35-5.85); RED CELL DISTRIBUTION WIDTH 13.3 % (10.0-14.5); WHITE BLOOD COUNT 7.4 10^3/uL (4.3-11.0)
[2016-12-04 18:48] VITALS: BP 163/96
[2016-12-04 19:04] LABS: ALBUMIN 4.6 G/DL (3.2-4.5); BILIRUBIN,TOTAL 1.1 MG/DL (0.1-1.0); CALCIUM 9.7 MG/DL (8.5-10.1); CREATININE SERUM 1.23 MG/DL (0.60-1.30); POTASSIUM 3.9 MMOL/L (3.6-5.0); TOTAL PROTEIN 7.4 G/DL (6.4-8.2)
[2016-12-04] MEDS ORDERED: SUCR1TAB36 PO (19:28)
[2016-12-04] MEDS ORDERED: SULF1TAB35 PO (19:28)
[2016-12-04] MEDS ORDERED: PANT40TA2 PO (19:28)
[2016-12-04 20:46] VITALS: BP 142/87
--- NOTE | 2016-12-04 21:00 | Diagnostic Imaging Report ---
PROCEDURE: US Gallbladder. TECHNIQUE: Multiple real-time grayscale images were obtained over the right upper quadrant in various projections. INDICATION: Abdominal pain. FINDINGS: There are no previous ultrasound examinations available for comparison. The CT abdomen/pelvis exam of 04/14/2015 did suggest there was a small gallstone within the gallbladder. On this study however that gallstone is difficult to identify with certainty. The gallbladder wall is not thickened and there is no pericholecystic fluid to suggest acute cholecystitis. The common bile duct is not well visualized. The liver is unremarkable; however, the left lobe is not well visualized. The previous CT exam did suggest that there was a cyst along the inferior pole of the right kidney. That cyst is again visualized and measures 3.0 x 1.9 x 1.6 cm. The cyst may be somewhat larger than on the prior exam, but the cyst still has a generally benign appearance. The pancreas is obscured by bowel gas. IMPRESSION: 1. The small gallstone within the gallbladder seen on the CT exam is difficult to appreciate on this study. There is no evidence for acute cholecystitis. 2. If clinical concern regarding an acute abnormality of the gallbladder persists, then a nuclear medicine hepatobiliary scan will be recommended for further study. Dictated by: Dictated on workstation # [id number]
== END 2016-12-04 20:46 | disposition home or self-care (01) ==
LOC: EDUNIT# 18:15 → ER 18:16
DX: K29.00 Acute gastritis without bleeding (principal); T36.8X5A Adverse effect of other systemic antibiotics, initial encounter
CPT/HCPCS: 36415; 76705; 80053; 82150; 83690; 85025

== ENCOUNTER 2018-08-19 15:56 | Outpatient (RCR) | payer BC ==
[~2018-08-19 15:56] MED LIST changes: +PANT40TA2 PO; +SUCR1TAB36 PO; +SULF1TAB35 PO
== END 2018-08-22 | disposition home or self-care (01) ==
PROVIDERS: ATTEND Orthopaedic Surgery
DX: M25.561 Pain in right knee (principal); Z96.653 Presence of artificial knee joint, bilateral

== ENCOUNTER 2018-09-10 08:04 | Outpatient (RCR) | payer BC | END 2018-09-10 08:47 | disposition home or self-care (01) | PROVIDERS: ATTEND Orthopaedic Surgery | DX: M25.561 Pain in right knee (principal); Z96.653 Presence of artificial knee joint, bilateral ==

== ENCOUNTER 2018-10-11 20:18 | Observation (INO) | payer BC ==
[~2018-10-11] VITALS: Ht 175.3 cm; Wt 115.4 kg
[2018-10-11] MEDS ORDERED: NITROGLYCERIN 0.4 MG SL TABS BTL 25'S SL ONE (20:28)
[2018-10-11] MEDS ORDERED: FAMOTIDINE 20 MG (PEPCID) TABLET PO STA (20:28)
[2018-10-11] MEDS ORDERED: ANTACID SUSP 30 ML UDC (MYLANTA) PO ONE (20:30)
[2018-10-11] MEDS ORDERED: NITROGLYCERIN 0.4 MG SL TABS BTL 25'S SL PRN (20:30)
[2018-10-11] MEDS ORDERED: ONDANSETRON 4 MG/2 ML (SDV) Z0FRAN IVP ONE ×2 (20:30→22:45)
[2018-10-11] MEDS ORDERED: ASPIRIN 81 MG CHEW (CHILDREN'S ASA) PO ONE (20:30)
[2018-10-11] MEDS ORDERED: LIDOCAINE 2% VISCOUS 15 ML UDC PO ONE (20:30)
[2018-10-11 20:34] LABS: BASOPHILS % (AUTO) 1 % (0-10); EOSINOPHILS # (AUTO) 0.1 10^3/uL (0.0-0.3); EOSINOPHILS % (AUTO) 2 % (0-10); HEMATOCRIT 46 % (40-54); HEMOGLOBIN 15.5 G/DL (13.3-17.7); LYMPHOCYTES # (AUTO) 2.1 X 10^3 (1.0-4.0); LYMPHOCYTES % (AUTO) 33 % (12-44); MEAN CORPUSCULAR HEMOGLOBIN 29 PG (25-34); MEAN CORPUSCULAR HGB CONC 34 G/DL (32-36); MEAN CORPUSCULAR VOLUME 87 FL (80-99); MEAN PLATELET VOLUME 9.4 FL (7.4-10.4); MONOCYTES # (AUTO) 0.6 X 10^3 (0.0-1.0); MONOCYTES % (AUTO) 10 % (0-12); NEUTROPHILS # (AUTO) 3.5 X 10^3 (1.8-7.8); NEUTROPHILS % (AUTO) 55 % (42-75); PLATELET COUNT 205 10^3/uL (130-400); RED BLOOD COUNT 5.27 10^6/uL (4.35-5.85); RED CELL DISTRIBUTION WIDTH 13.2 % (10.0-14.5); WHITE BLOOD COUNT 6.4 10^3/uL (4.3-11.0)
--- NOTE | 2018-10-11 20:36 | ED Chest Pain ---
General Stated Complaint: CHEST PAIN Source: patient, spouse Exam Limitations: no limitations History of Present Illness Date Seen by Provider: Oct 11, 2018 Time Seen by Provider: 20:24 Initial Comments Patient presents to ER by private conveyance with his and chief complaint that about an hour or so ago he is having some burning gnawing in his midepigastric region. He says had this pain for couple years ago and ended up having to go to [place] to get a procedure done was told something to do with his gallbladder. He did not have his gallbladder removed. He denies a history of pancreatitis. He does drink alcohol occasionally his last drink being Thursday , 3 days ago. He does not have diabetes, thyroid problems, cholesterol, history of coronary artery disease but he does have a history of high blood pressure. He also takes Lexapro. He has no drug allergies. He is not having any sweats or radiation of his pain up into his chest shoulders neck or jawline. He is having nausea and tried retching couple times at home but did not vomit. Says the pain started around 1930 approximately an hour prior to arrival and he took some Pepto-Bismol that time and that helped some. Earlier in the days having some similar symptoms and took some Tums and that helped. He denies a history of ulcer. He says over the weekend is having similar symptoms don't know where near as bad it's about 10 out of 10 now. Says at that time he did use some Tums for it also made it go away. He is also having some loose stools and he noticed that the pain seemed to come on a couple hours after eating. He ate approximately 2 hours ago chicken and rice. Allergies and Home Medications Allergies Coded Allergies: No Known Drug Allergies (Verified , 10/11/18) Home Medications Clindamycin HCl 300 Mg Capsule, 300 MG PO Q6H Prescribed by: JVOI PUGH on 11/29/16 1051 Enalapril Maleate 5 Mg Tablet, 2.5 MG PO DAILY, (Reported) TAKES 1/2 OF A (5 MG) TABLET Escitalopram Oxalate 20 Mg Tablet, 20 MG PO DAILY, (Reported) Naproxen Sodium 220 Mg Tablet, 440 MG PO BID PRN for PAIN, (Reported) Pantoprazole Sodium 40 Mg Tablet.dr, 40 MG PO DAILY Prescribed by: BERNABE RUBY on 12/04/161927 Sucralfate 1 Gm Tablet, 1 GM PO ACHS Prescribed by: BERNABE RUBY on 12/04/161927 Sulfamethoxazole/Trimethoprim 1 Each Tablet, 1 EACH PO BID Prescribed by: BERNABE RUBY on 12/04/161927 Patient Home Medication List Home Medication List Reviewed: Yes Review of Systems Review of Systems Constitutional: No diaphoresis, No fever, No malaise EENTM: No Blurred Vision, No Double Vision Respiratory: Denies Cough, Denies Shortness of Air Cardiovascular: See HPI, Chest Pain; Denies Edema Gastrointestinal: Denies Abdomen Distended; Abdominal Pain; Denies Constipated , Denies Diarrhea; Nausea; Denies Poor Fluid Intake, Denies Vomiting Genitourinary: Denies Flank Pain, Denies Pain Musculoskeletal: No back pain, No joint pain Skin: No pruritus, No rash Past [place]-Yjpcxj-Lozrsn Hx Patient Social History Alcohol Use: Occasionally Uses Alcohol Beverage of Choice: Beer Recreational Drug Use: No Smoking Status: Never a Smoker Recent Foreign Travel: No Contact w/Someone Who Travel: No Recent Hopitalizations: Yes Immunizations Up To Date Date of Influenza Vaccine: Jul 24, 2016 Seasonal Allergies Seasonal Allergies: No Past Medical History Surgeries: No (SX ON FINGER ON L HAND, BASKET KIDNEY STONES X2) Respiratory: Yes (SLEEP APNEA-CPAP) Cardiac: No Neurological: Yes (ANXIETY ) Reproductive Disorders: No Kidney Stones, Epi/Hypospadias Gastrointestinal: Yes Gall Bladder Disease Musculoskeletal: Yes Osteoporosis, Arthritis Endocrine: No Cancer: No Psychosocial: Yes Anxiety Integumentary: No Blood Disorders: No Family Medical History Diabetes mellitus 19 MOTHER Kidney disease No Pertinent Family Hx Physical Exam Vital Signs Vital Signs - First Documented Capillary Refill : Height, Weight, BMI Height: 5'9" Weight: 255lbs. 0.0oz. [id number]; 37.7 BMI Method:Stated General Appearance: WD/WN, Anxious, Mild Distress HEENT: PERRL/EOMI, Pharynx Normal, Moist Mucous Membranes Neck: Full Range of Motion, Normal Inspection Respiratory: Chest Non Tender, Lungs Clear, Normal Breath Sounds, No Accessory Muscle Use, No Respiratory Distress Cardiovascular: Regular Rate, Rhythm, No Edema, No Gallop, No Murmur, Normal Peripheral Pulses Gastrointestinal: Normal Bowel Sounds, No Organomegaly, Guarding, Tenderness ( Positive Gallegos sign as well as tenderness over the midepigastric region) Extremity: Normal Capillary Refill, No Pedal Edema Neurologic/Psychiatric: Alert, Oriented x3 Skin: Normal Color, Warm/Dry Progress/Results/Core Measures Results/Orders Lab Results Laboratory Tests Test 10/11/18 20:20 Range/Units White Blood Count 6.4 4.3-11.0 10^3/uL Red Blood Count 5.27 4.35-5.85 10^6/uL Hemoglobin 15.5 13.3-17.7 G/DL Hematocrit 46 40-54 % Mean Corpuscular Volume 87 80-99 FL Mean Corpuscular Hemoglobin 29 25-34 PG Mean Corpuscular Hemoglobin Concent 34 32-36 G/DL Red Cell Distribution Width 13.2 10.0-14.5 % Platelet Count 205 130-400 10^3/uL Mean Platelet Volume 9.4 7.4-10.4 FL Neutrophils (%) (Auto) 55 42-75 % Lymphocytes (%) (Auto) 33 12-44 % Monocytes (%) (Auto) 10 0-12 % Eosinophils (%) (Auto) 2 0-10 % Basophils (%) (Auto) 1 0-10 % Neutrophils # (Auto) 3.5 1.8-7.8 X 10^3 Lymphocytes # (Auto) 2.1 1.0-4.0 X 10^3 Monocytes # (Auto) 0.6 0.0-1.0 X 10^3 Eosinophils # (Auto) 0.1 0.0-0.3 10^3/uL Basophils # (Auto) 0.0 0.0-0.1 10^3/uL Prothrombin Time 13.7 12.2-14.7 SEC INR Comment 1.1 0.8-1.4 Activated Partial Thromboplast Time 34 24-35 SEC Sodium Level 142 135-145 MMOL/L Potassium Level 3.9 3.6-5.0 MMOL/L Chloride Level 104 98-107 MMOL/L Carbon Dioxide Level 26 21-32 MMOL/L Anion Gap 12 5-14 MMOL/L Blood Urea Nitrogen 18 7-18 MG/DL Creatinine 1.29 0.60-1.30 MG/DL Estimat Glomerular Filtration Rate 57 BUN/Creatinine Ratio 14 Glucose Level 111 H 70-105 MG/DL Calcium Level 10.2 H 8.5-10.1 MG/DL Corrected Calcium 8.5-10.1 MG/DL Magnesium Level 2.3 1.8-2.4 MG/DL Total Bilirubin 1.0 0.1-1.0 MG/DL Aspartate Amino Transf (AST/SGOT) 54 H 5-34 U/L Alanine Aminotransferase (ALT/SGPT) 53 0-55 U/L Alkaline Phosphatase 46 40-136 U/L Myoglobin 88.2 10.0-92.0 NG/ML Troponin I < 0.30 <0.30 NG/ML Total Protein 7.6 6.4-8.2 GM/DL Albumin 4.6 H 3.2-4.5 GM/DL Amylase Level 36 25-125 U/L Lipase 27 8-78 U/L My Orders Orders - NIVIA PLEITEZ Cbc With Automated Diff (10/11/18) Magnesium (10/11/18) Chest 1 View, Ap/Pa Only (10/11/18) Ekg Tracing (10/11/18) Cardiac Profile 1 (10/11/18) Comprehensive Metabolic Panel (10/11/18) Myoglobin Serum (10/11/18:) Protime With Inr (10/11/18) Partial Thromboplastin Time (10/11/18) O2 (10/11/18:) Monitor-Rhythm Ecg Trace Only (10/11/18) Lipid Panel (10/12/18 06:00) Aspirin Chewable Tablet (Baby Aspirin Ch (10/11/18:) Nitroglycerin 0.4 Mg Btl 25's (Nitrostat (10/11/18 20:) Saline Lock/Iv-Start (10/11/18:) Lipase (10/11/18:) Amylase (10/11/18:) Ondansetron Injection (Zofran Injectio (10/11/18 20:30) Lidocaine 2% Viscous 15 Ml (Xylocaine Vi (10/11/18 20:30) Famotidine Tablet (Pepcid Tablet) (10/11/18 20:) Antacid Suspension (Mylanta Suspension (10/11/18 20:) Nitroglycerin 0.4 Mg Btl 25's (Nitrostat (10/11/18 20:28) Ct Abdomen/Pelvis W (10/11/18 20:48) Iohexol Injection (Omnipaque 350 Mg/Ml 1 (10/11/18 21:00) Contrast Received (Contrast Received) (10/11/18 21:00) Ns (Ivpb) (Sodium Chloride 0.9%) (10/11/18 21:00) Ondansetron Injection (Zofran Injectio (10/11/18 22:45) Ketorolac Injection (Toradol Injection) (10/11/18 22:45) Medications Given in ED Current Medications Medications Dose Ordered Sig/Troy Route Start Time Stop Time Status Last Admin Dose Admin Al Hydrox/Mg Hydrox/Simethicone 30 ml ONCE ONCE PO 10/11/18 20:30 10/11/18 20:31 DC 10/11/18 20:42 30 ML Aspirin 324 mg ONCE ONCE PO 10/11/18 20:30 10/11/18 20:31 DC 10/11/18 20:42 324 MG Iohexol 100 ml ONCE ONCE IV 10/11/18 21:00 10/11/18 21:21 DC 10/11/18 21:07 100 ML Lidocaine HCl 15 ml ONCE ONCE PO 10/11/18 20:30 10/11/18 20:31 DC 10/11/18 20:42 15 ML Nitroglycerin 0.4 mg UD PRN SL 10/11/18 20:30 10/11/18 20:33 0.4 MG Ondansetron HCl 4 mg ONCE ONCE IVP 10/11/18 20:30 10/11/18 20:31 DC 10/11/18 20:42 4 MG Sodium Chloride 250 ml ONCE ONCE IV 10/11/18 21:00 10/11/18 21:21 DC 10/11/18 21:07 80 ML Vital Signs/I&O 10/11/18 10/11/18 10/11/18 20:31 20:31 20:31 Temp 98.3 Pulse 80 Resp 25 B/P (MAP) 177/100 (125) Pulse Ox 97 97 O2 Delivery Nasal Cannula Nasal Cannula Nasal Cannula O2 Flow Rate 3.0 3.00 3.00 Progress Progress Note #1: Time: 20:35 Progress Note Suspect strongly gallbladder obstruction versus duct versus pancreatitis etc. We 'll go ahead and give him a nitroglycerin tablets if that makes any difference in his symptoms and if not we'll give him a GI cocktail. Initial EKG is unremarkable. History is unremarkable. Cardiac complaints other than the 58 and male. History of kidney stones as well as 2 years ago he had a colonoscopy without polyps but some scattered sigmoid diverticula were seen. Ultrasound 2007 question the possibility of gallbladder polyps versus choledocholithiasis. 8 pts. Low risk by the EDACS Score. If the patient also has: (1) EKG without new ischemic changes and (2) negative initial and 2-hour troponins, then this patient is safe for discharge to early outpatient follow-up investigation (or proceed to earlier inpatient testing). If EKG with ischemic changes or positive troponin, they are not low risk and require normal risk stratification. Progress Note #2: Time: 20:57 Progress Note The nitroglycerin did not make any difference in the patient's blood pressure pain however GI cocktail nearly immediately started improving his symptoms and his blood pressure has come down to 150 systolic from 180. We do not have ultrasound this time so we'll plan a CT with contrast to evaluate gallbladder and biliary tree. Initial ECG Impression Date: Oct 11, 2018 Initial ECG Impression Time: 20:18 Initial ECG Rate: 79 Initial ECG Rhythm: Normal Sinus Initial ECG Intervals: Normal Initial ECG Impression: Normal Initial ECG Comparisson: No Previous ECG Available Comment No ST elevation or depression. Diagnostic Imaging Diagonstic Imaging: CT (with) Plain Films/CT/US/NM/MRI: abdomen, pelvis Reviewed: Reviewed by Me Diagonstic Imaging: Xray Plain Films/CT/US/NM/MRI: chest (1v) Comments VIA [facility] [employer] [facility]. [place], [place] NAME: BEN LUNA [facility] REC#: [id number] PT STATUS: REG ER : 1960 PHYSICIAN: NIVIA PLEITEZ MD ADMIT DATE: 10/11/18/ER Draft Date of Exam:10/11/18 CHEST 1 VIEW, AP/PA ONLY INDICATION: Severe chest pain EXAMINATION: Chest 10/11/2018 COMPARISON: 08/20/2008 FINDINGS: Low lung volumes noted, otherwise the lungs are clear with no infiltrates, effusions or pneumothorax. The heart is unremarkable. Pulmonary vasculature is normal. IMPRESSION: 1. Low lung volumes, otherwise negative chest. Dictated on workstation # [id number] Dict: 10/11/182100 Trans: 10/11/182110 [facility] [id number] Interpreted by: RUSSELL MARTINEZ MD Electronically signed by: Reviewed: Reviewed by Me Departure Communication (Admissions) Time/Spoke to Admitting Phy: 22:45 Discussed case lab imaging findings and vital signs with Dr. Damon and he agrees to see the patient in the morning. Impression Primary Impression: Cholecystitis with cholelithiasis Qualified Codes: K80.12 - Calculus of gallbladder with acute and chronic cholecystitis without obstruction Disposition: ADMITTED INPATIENT Condition: Stable Admissions Decision to Admit Reason: Admit from ER (General) Decision to Admit/Date: Oct 11, 2018 Time/Decision to Admit Time: 23:00 Departure-Patient Inst. Referrals: DARLIN FELIX MD (PCP/Family) Primary Care Physician Copy Copies To 1: DARLIN FELIX MD, TITUS J Oct 11, 2018 20:36
[2018-10-11 20:46] LABS: INR 1.1 (0.8-1.4); PROTHROMBIN TIME PATIENT 13.7 SEC (12.2-14.7)
[2018-10-11 20:52] LABS: ALANINE AMINOTRANSFERASE 53 U/L (0-55); ALBUMIN 4.6 GM/DL (3.2-4.5); ALKALINE PHOSPHATASE 46 U/L (40-136); AMYLASE 36 U/L (25-125); BUN/CREATININE RATIO 14; CALCIUM 10.2 MG/DL (8.5-10.1); CARBON DIOXIDE 26 MMOL/L (21-32); CHLORIDE 104 MMOL/L (98-107); CREATININE SERUM 1.29 MG/DL (0.60-1.30); GFR ESTIMATED 57; GLUCOSE 111 MG/DL (70-105); LIPASE 27 U/L (8-78); POTASSIUM 3.9 MMOL/L (3.6-5.0); SODIUM 142 MMOL/L (135-145); TOTAL PROTEIN 7.6 GM/DL (6.4-8.2)
[2018-10-11 20:58] LABS: MYOGLOBIN SERUM 88.2 NG/ML (10.0-92.0)
[2018-10-11] MEDS ORDERED: NS 250 ML (IVPB) BAG IV ONE (21:00)
[2018-10-11] MEDS ORDERED: IOHEXOL 350 MG/ML 100 ML (OMNIPAQUE 350) VIAL IV ONE (21:00)
[2018-10-11] MEDS ORDERED: RECEIVED CONTRAST (Hold Metformin) IV SCH (21:00)
[2018-10-11 21:10] LABS: MAGNESIUM 2.3 MG/DL (1.8-2.4)
--- NOTE | 2018-10-11 21:11 | Diagnostic Imaging Report ---
INDICATION: Severe chest pain EXAMINATION: Chest 10/11/2018 COMPARISON: 08/20/2008 FINDINGS: Low lung volumes noted, otherwise the lungs are clear with no infiltrates, effusions or pneumothorax. The heart is unremarkable. Pulmonary vasculature is normal. IMPRESSION: 1. Low lung volumes, otherwise negative chest. Dictated by: Dictated on workstation # [id number]
--- NOTE | 2018-10-11 21:45 | Diagnostic Imaging Report ---
PROCEDURE: CT abdomen and pelvis with contrast. TECHNIQUE: Multiple contiguous axial images were obtained through the abdomen and pelvis after administration of intravenous contrast. INDICATION: Right upper quadrant pain with nausea, history of stones. EXAMINATION: CT abdomen and pelvis, 10/11/2018. COMPARISONS: 04/14/2015 FINDINGS: Lung bases unremarkable for acute abnormality. The liver demonstrates fatty infiltration but is otherwise unremarkable. Gallbladder contains a few hyperdensities likely stones. No surrounding inflammatory change appreciated. Common duct appears somewhat dilated approximately 9 mm. Sonography could better characterized. On this examination, a definite distal obstructive process is not appreciated. The pancreas is atrophied with fatty infiltration noted. The spleen is normal. Adrenal glands contain a rounded lesion on the right which is a nonspecific finding but fairly stable from previous given stability since 2014 is most likely benign process. Mild hyperplasia in the left adrenal gland noted and stable. The kidneys demonstrate no evidence for acute abnormality. There is a cystic lesion on the right slightly increased in size from previous, however Hounsfield units are consistent with a cyst. Left kidney grossly unremarkable and stable from previous. Appendix is seen unremarkable in appearance. No surrounding inflammatory change is seen. There is diverticular disease without evidence for diverticulitis. No free fluid or air in the abdomen nor the pelvis. Prostate gland is prominent in appearance correlate clinically. There is a fat-containing inguinal hernia on the left. There is mild atherosclerotic disease. Osseous structures demonstrate degenerative findings with no acute abnormality. 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 IMPRESSION: 1. Stones in the gallbladder with the common duct somewhat dilated. If there are symptoms suggestive of possible acute cholecystitis, sonography recommended. 2. Remaining findings are incidental as discussed above. Right renal cystic lesion slightly increased in size from previous but likely a cyst. Right adrenal gland lesion stable and likely benign given 3 years of stability. Other findings as above. Dictated by: Dictated on workstation # [id number]
[2018-10-11] MEDS ORDERED: KETOROLAC 30 MG/ML VIAL IVP ONE (22:45)
[2018-10-11] MEDS ORDERED: fentaNYL INJECTION 100 MCG/2 ML AMP IVP ONE (23:15)
[2018-10-12 00:45] VITALS: BP 134/85
[2018-10-12] MEDS ORDERED: ONDANSETRON 4 MG/2 ML (SDV) Z0FRAN IVP PRN (03:15)
[2018-10-12] MEDS ORDERED: KETOROLAC 15 MG/ML VIAL IVP PRN (03:15)
[2018-10-12] MEDS ORDERED: fentaNYL INJECTION 100 MCG/2 ML AMP IVP PRN (03:15)
[2018-10-12] MEDS ORDERED: NS W/KCL 20 MEQ/L 1,000 ML IV ONE (03:17)
[2018-10-12] MEDS: NS W/KCL 20 MEQ/L 1,000 ML IV SCH ×2 (03:30→08:33)
[2018-10-12 04:00] VITALS: BP 119/69
[2018-10-12 06:38] LABS: CHOLESTEROL 194 MG/DL (< 200); HDL CHOLESTEROL 48 MG/DL (40-60); TRIGLYCERIDES 101 MG/DL (<150); VLDL CHOLESTEROL 20 MG/DL (5-40)
[2018-10-12 08:00] VITALS: BP 132/83
[2018-10-12] MEDS ORDERED: PANTOPRAZOLE 40 MG (PROTONIX) VIAL IV SCH (09:00)
[2018-10-12] MEDS ORDERED: ENALAPRIL 2.5 MG (VASOTEC) TAB PO SCH ×2 (09:00→11:41)
[2018-10-12] MEDS ORDERED: MV-M1TAB22 PO (09:38)
[2018-10-12] MEDS ORDERED: ASCO-262 PO (09:38)
[2018-10-12] MEDS ORDERED: TEST200V22 INJ (09:39)
--- NOTE | 2018-10-12 11:34 | History & Physicial ---
History of Present Illness History of Present Illness Reason for visit/HPI Acute onset of right upper quadrant pain and nausea. He recalls a similar episode 10 years ago with negative evaluation of the gallbladder. Papillary stenosis was suspected and he might undergone endoscopic sphincterotomy at that point. CT scan from the emergency room shows some opacity along the neck of the gallbladder suggestive of gallstones. However, a dedicated ultrasound of the gallbladder from this morning is negative. Currently, he is symptom free, feeling hungry Date of Admission Oct 11, 2018 at 23:08 Date Seen by a Provider: Oct 12, 2018 Time Seen by a Provider: 09:05 I consulted on this patient on 10/12/18 11:29 Attending Physician Jaguar Elliott MD Admitting Physician Jeronimo Hsu MD Consult Allergies and Home Medications Allergies Coded Allergies: No Known Drug Allergies (Verified , 10/11/18) Home Medications Ascorbate Calcium 500 Mg Tablet, 1,000 MG PO DAILY, (Reported) Enalapril Maleate 5 Mg Tablet, 2.5 MG PO DAILY, (Reported) TAKES 1/2 OF A (5 MG) TABLET Escitalopram Oxalate 20 Mg Tablet, 20 MG PO DAILY, (Reported) Mv-Min/Vit C/Glu/Kailey HCl/Hc124 1 Each Tablet.eff, 1 TAB PO DAILY, (Reported) Naproxen Sodium 220 Mg Tablet, 440 MG PO BID PRN for PAIN-MILD, (Reported) Testosterone Enanthate 200 Mg/1 Ml Vial, 200 MG INJ MONTHLY, (Reported) Patient Home Medication List Home Medication List Reviewed: Yes Past Qapgoiu-Tiukqz-Vffgjb Hx Patient Social History Marrital Status: Employed/Student: self-employed Alcohol Use: Occasionally Uses Number of Drinks Today: AA Alcohol Beverage of Choice: Beer Recreational Drug Use: No Smoking Status: Never a Smoker Physical Abuse Screen: No Sexual Abuse: No Recent Foreign Travel: No Contact w/other who traveled: No Recent Hopitalizations: Yes Recent Infectious Disease Expo: No Immunizations Up To Date Date of Influenza Vaccine: Aug 26, 2018 Seasonal Allergies Seasonal Allergies: No Surgeries Yes Joint Replacement Respiratory No Cardiovascular No Neurological No Reproductive System Hx Reproductive Disorders: No Genitourinary Yes Kidney Stones, Epi/Hypospadias Gastrointestinal Yes Gall Bladder Disease Musculoskeletal Yes Osteoporosis, Arthritis Endocrine History of Endocrine Disorders: No HEENT History of HEENT Disorders: No Cancer No Psychosocial History of Psychiatric Problem: Yes Behavioral Health Disorders: Anxiety, Depression Integumentary History of Skin or Integumenta: No Blood Transfusions History of Blood Disorders: No Family Medical History Significant Family History: No Pertinent Family Hx Family Hx: Diabetes mellitus 19 MOTHER Kidney disease Review of Systems Constitutional: no symptoms reported EENTM: no symptoms reported Respiratory: no symptoms reported Cardiovascular: no symptoms reported Gastrointestinal: see HPI Musculoskeletal: joint pain Skin: no symptoms reported Psychiatric/Neurological: No Symptoms Reported Physical Exam Vital Signs Vital Signs - First Documented Capillary Refill : Less Than 3 Seconds Height, Weight, BMI Height: 5'9.00" Weight: 254lbs. 8.0oz. 115.367299bn; 37.7 BMI Method:Stated General Appearance: No Apparent Distress HEENT: Normal ENT Inspection Neck: Normal Inspection Respiratory: Lungs Clear Cardiovascular: Regular Rate, Rhythm Gastrointestinal: Non Tender, Soft Rectal: Deferred Back: Normal Inspection Extremity: Normal Inspection Neurologic/Psychiatric: Oriented x3 Skin: Warm/Dry Assessment/Plan Assessment and Plan Gentleman with acute onset of right upper quadrant pain. Common bile duct slightly dilated at [address] scan. No gallstones on ultrasound. Reasonable to obtain a HIDA scan first. If negative, he'll be discharged home with arrangements for an outpatient endoscopic ultrasound to assess the papilloma. Admission Diagnosis Admission Status: Observation Clinical Quality Measures DVT/VTE Risk/Contraindication: Risk Factor Score Per Nursin RFS Level Per Nursing on Admit: 1=Low/No VTE PPX JAGUAR ELLIOTT MD Oct 12, 2018 11:34
[2018-10-12 12:00] VITALS: BP 131/81
--- NOTE | 2018-10-12 12:43 | Diagnostic Imaging Report ---
PROCEDURE: US Gallbladder. TECHNIQUE: Multiple real-time grayscale images were obtained over the right upper quadrant in various projections. INDICATION: Abdominal pain. FINDINGS: The previous gallbladder ultrasound exam of 12/04/2016 failed to show any sign of cholelithiasis or acute cholecystitis. The CT abdomen/pelvis exam performed on 10/11/2018 did suggest a small stone within the gallbladder and indicated that the common bile duct was somewhat dilated. On this exam, there is still no is evidence for a calculus within the gallbladder. The gallbladder wall does not appear to be thickened and there is no pericholecystic fluid to suggest acute cholecystitis. The common bile duct itself is obscured by bowel gas. The biliary tree does not appear to be abnormally distended, however. The liver itself is generally unremarkable. There does appear to be a septated cyst in the inferior pole of the right kidney. This measures 3.4 x 2.0 x 2.2 cm. This cyst was present on the prior exam and has not changed significantly. The right kidney is otherwise unremarkable. The pancreas and the proximal aorta are obscured by bowel gas. IMPRESSION: 1. The calcification within the gallbladder seen on the CT exam cannot be identified on this study. There is no evidence for acute cholecystitis either. The common bile duct is not well visualized, but the biliary tree is not abnormally dilated. 2. If clinical concern regarding an acute abnormality of the gallbladder persists, then a nuclear medicine hepatobiliary scan will be recommended for further study. 3. These results were discussed with Dr. Damon. Dictated by: Dictated on workstation # [id number]
--- NOTE | 2018-10-12 15:21 | Progress Note-Standard ---
Standard Progress Note Progress Notes/Assess & Plan Date Seen by a Provider: Oct 12, 2018 Time Seen by a Provider: 15:19 Progress/Assessment & Plan HIDA scan has confirmed acalculus cholecystitis with a reduced ejection fraction of 11.6 percent. It is therefore reasonable to offer cholecystectomy. I have therefore discussed the procedure using minimally invasive technique with robotic assistance. I have projected the usual recovery, complications of wound infection, bile leak, persistence of symptoms etc. If his right upper quadrant pain is unresolved, he'll be scheduled for an endoscopic ultrasound with possible papillotomy with one of the spooler rubber strand in the area. I have discussed all these implications with him and he is in agreement. Final Diagnosis acalculous cholecystitis with gallbladder dyskinesia AJGUAR ELLIOTT MD Oct 12, 2018 15:21
--- NOTE | 2018-10-12 15:23 | Discharge Inst-Simple/Standard ---
Discharge Inst-Standard Discharge Medications New, Converted or Re-Newed RX: Other Patient Instructions/Follow Up Plan of Care/Instructions/FU: to stay nothing by mouth from midnight tonight. May use ENALAPRIL with a sip of water in a.m. To return to outpatient surgery at the scheduled time for cholecystectomy Activity as Tolerated: Yes Discharge Diet: Other Diet JAGUAR ELLIOTT MD Oct 12, 2018 15:23
[2018-10-12 16:00] VITALS: BP 131/81
--- NOTE | 2018-10-12 18:28 | Diagnostic Imaging Report ---
INDICATION: Right upper quadrant pain. TECHNIQUE: Acquisitions were acquired of the abdomen after the administration of 5.01 mCi of technetium-99m Choletec. The ejection fraction was calculated after the patient drank a can of Ensure. FINDINGS: There is homogeneous uptake of isotope throughout the liver. There is significant accumulation within the gallbladder by 60 minutes. There is free flow of activity into the small bowel. The ejection fraction was 11.6%. IMPRESSION: No evidence of cystic duct obstruction; however, there was an abnormally low ejection fraction of 11.6%. Dictated by: Dictated on workstation # [id number]
[2018-10-13] MEDS ORDERED: ACHD5005 PO (12:01)
== END 2018-10-12 16:00 | disposition home or self-care (01) ==
LOC: EDUNIT# 20:18 → ER 20:19 → UNDOADMOB 23:08 → 4TH 23:08
PROVIDERS: ADMIT Surgery; ATTEND Surgery
DX: K81.9 Cholecystitis, unspecified (principal); K82.8 Other specified diseases of gallbladder; M81.0 Age-related osteoporosis without current pathological fracture; F41.9 Anxiety disorder, unspecified; I10 Essential (primary) hypertension; Z79.899 Other long term (current) drug therapy; Z96.60 Presence of unspecified orthopedic joint implant; Z87.442 Personal history of urinary calculi
CPT/HCPCS: 36415; 71045; 74177; 76705; 78227; 80053; 80061; 82150; 83690; 83735; 83874; 84484; 85025; 85610; 85730; 90471; 93005; 93041; G0378

== ENCOUNTER 2018-10-13 09:43 | Day surgery (SDC) | payer BC ==
[~2018-10-13] VITALS: Ht 175.3 cm; Wt 115.4 kg
[~2018-10-13 09:43] MED LIST changes: +ASCO-262 PO; +MV-M1TAB22 PO; +TEST200V22 INJ
[2018-10-13] MEDS ORDERED: proPOfol 200 MG/20 ML (DIPRIVAN) VIAL IV ONE (09:45)
[2018-10-13] MEDS ORDERED: ONDANSETRON 4 MG/2 ML (SDV) Z0FRAN ONE (09:45)
[2018-10-13] MEDS ORDERED: ROCURONIUM 10 MG/ML 5 ML SYRINGE IV ONE ×2 (09:45→11:26)
[2018-10-13] MEDS ORDERED: fentaNYL INJECTION 100 MCG/2 ML AMP ONE (09:45)
[2018-10-13] MEDS ORDERED: LIDOCAINE PF 2% 5 ML (XYLOCAINE) VIAL ONE (09:45)
[2018-10-13] MEDS ORDERED: DEXAMETHASONE 10 MG/ML (DECADRON) 1 ML VIAL ONE (09:45)
[2018-10-13] MEDS ORDERED: MIDAZOLAM 2 MG/2 ML (VERSED) VIAL ONE (09:45)
[2018-10-13] MEDS ORDERED: SEVOFLURANE (ULTANE) 15 ML INHAL SOLN ONE ×6 (09:46→12:14)
[2018-10-13 09:55] VITALS: BP 147/94
--- NOTE | 2018-10-13 09:58 | Progress Note-Pre Operative ---
Pre-Operative Progress Note H&P Reviewed The H&P was reviewed, patient examined and no changes noted. Date Seen by Provider: Oct 12, 2018 Time Seen by Provider: 16:00 Date H&P Reviewed: Oct 13, 2018 Time H&P Reviewed: 09:57 Pre-Operative Diagnosis: Acalculous cholecystitis with GB dyskinesia JAGUAR ELLIOTT MD Oct 13, 2018 09:58
[2018-10-13] MEDS ORDERED: BUP/EPI 0.5% 1:200,000 (SENSORCAINE) 30 ML VIAL ONE (10:14)
[2018-10-13] MEDS: LACTATED RINGERS 1,000 ML IV PRN ×2 (10:20→11:26)
[2018-10-13] MEDS ORDERED: ceFAZolin 2 GM IV Premixed 50 ML ONE (10:25)
[2018-10-13] MEDS ORDERED: metroNIDAZOLE 500MG/100ML IVPB 100 ML ONE (10:26)
[2018-10-13] MEDS ORDERED: metroNIDAZOLE 500 MG/100 ML IVPB (PRE-MIX) IV ONE (10:30)
[2018-10-13] MEDS ORDERED: ANCEF 2 GM/50 ML PRE-MIXED IVPB IV ONE (10:30)
[2018-10-13] MEDS ORDERED: GLYCOPYRROLATE 0.2 MG/ML (ROBINUL) 2 ML VIAL ONE (11:43)
[2018-10-13] MEDS ORDERED: NEOSTIGMINE 1 MG/ML 5 ML SYRINGE ONE (11:43)
--- NOTE | 2018-10-13 12:00 | Operative Report ---
Operative Report Date of Procedure/Surgery Oct 13, 2018 Surgeon (s) JAGUAR ELLIOTT MD Medical Cash Poster (s): N/A Post-Operative Diagnosis Acute acalculous cholecystitis with dyskinesia Procedure Performed Robotic-assisted cholecystectomy Description of Procedure Anesthesia Type: General Estimated blood loss (mL): 50 mL Specimen(s) collected/removed Gallbladder Description of the Procedure Indication for the procedure: This gentleman presented with right upper quadrant pain of acute onset. Despite the lack of identifying gallstones on ultrasound, HIDA scan informed severely decreased ejection fraction of the gallbladder, indicating acalculus cholecystitis. Therefore, he was offered prompt cholecystectomy using minimally invasive technique with t robotic assistance. Informed consent was obtained after reviewing the operative details, expected recovery, complications of wound infection and bile leak and persistence of his symptoms, requiring further evaluation. Description of the procedure: He was placed supine on the operative table and general anesthesia induced. 2 g of Ancef and 500 mg of Flagyl were administered intravenously as prophylaxis against wound infection. Sequential compression devices were placed around his legs, to minimize the risk of venous thrombosis. Abdomen was prepared and draped in the usual sterile manner. Pneumoperitoneum was established using a Veress needle through the umbilicus itself, after making a 5 mm incision in a vertical fashion. Intra-abdominal pressure was maintained at 15 mmHg, using carbon dioxide insufflation. A 12 mm trocar was placed and anatomy visualized using the high definition, 3-dimensional laparoscope associated with da Nadege system. Under direct view, I placed an 8 mm trocar and the side of the abdomen, followed by a 5 mm trocar over the left subcostal region. He was then turned into reverse Trendelenburg position with the right side tilted up. The robotic system was then docked in place. Laparoscopic survey confirmed an acutely inflamed and edematous gallbladder, indicative of acute acalculous cholecystitis. I elected to decompress the gallbladder to facilitate dissection. The fundus was retracted cephalad infundibulum grasped with Cadiere forceps. Inflamed tissue around Calot's triangle was incised using the hook cautery, delineating the cystic duct and artery. Both were controlled between locking clips. Cholecystectomy was then completed using hook cautery. Subhepatic space was then irrigated with saline and the gallbladder placed in an Endo Catch bag, the removed via the umbilical trocar site. The fascia over this incision was closed using #1 Vicryl and the skin incisions were closed using 4-0 Vicryl, in a subcuticular fashion. 0.5 percent Marcaine with epinephrine was infiltrated along the incisions, both preemptively and at the conclusion of the operation. He tolerated the procedure well, was extubated in the operative room and taken to the recovery room in a stable condition Findings of the Procedure See op report Allergies and Home Medications Allergies Coded Allergies: No Known Drug Allergies (Verified , 10/11/18) Home Medications Enalapril Maleate 5 Mg Tablet, 2.5 MG PO DAILY, (Reported) TAKES 1/2 OF A (5 MG) TABLET Escitalopram Oxalate 20 Mg Tablet, 20 MG PO DAILY, (Reported) Testosterone Enanthate 200 Mg/1 Ml Vial, 200 MG INJ MONTHLY, (Reported) Patient Home Medication List Home Medication List Reviewed: Yes JAGUAR ELLIOTT MD Oct 13, 2018 12:00
[2018-10-13] MEDS ORDERED: ACHD5005 PO (12:01)
--- NOTE | 2018-10-13 12:02 | Discharge Inst-Simple/Standard ---
Discharge Inst-Standard Discharge Medications New, Converted or Re-Newed RX: RX on Chart Patient Instructions/Follow Up Plan of Care/Instructions/FU: Band-Aids off in 48 hours. Incentive spirometry. Follow-up in 2 weeks. Activity as Tolerated: Yes Discharge Diet: No Restrictions JAGUAR ELLIOTT MD Oct 13, 2018 12:02
[2018-10-13] MEDS ORDERED: SUGAMMADEX 500 MG/5 ML VIAL (BRIDION) IV ONE (12:14)
[2018-10-13] MEDS ORDERED: morphine INJ 10 MG/ML 1ML (SYR OR VIAL) ONE (12:14)
[2018-10-13] MEDS ORDERED: fentaNYL INJECTION 100 MCG/2 ML AMP IVP ONE (12:15)
[2018-10-13] MEDS ORDERED: ONDANSETRON 4 MG/2 ML (SDV) Z0FRAN IVP PRN (12:15)
[2018-10-13] MEDS ORDERED: KETOROLAC 30 MG/ML VIAL IVP ONE (12:15)
[2018-10-13] MEDS ORDERED: MEPERIDINE (DEMEROL) INJ 50 MG/ML IVP ONE (12:15)
[2018-10-13] MEDS ORDERED: morphine INJ 10 MG/ML 1ML (SYR OR VIAL) IVP ONE (12:15)
[2018-10-13] MEDS ORDERED: KETOROLAC 30 MG/ML VIAL ONE (12:15)
[2018-10-13 13:15] VITALS: BP 122/75
[2018-10-13] MEDS ORDERED: HYDROcodone/APAP 5 MG/325 MG (LORTAB) TAB PO PRN (14:00)
[2018-10-13 14:05] VITALS: BP 135/85
[2018-10-13 14:45] VITALS: BP 122/65
== END 2018-10-13 14:45 | disposition home or self-care (01) ==
LOC: SDC 09:43
PROVIDERS: ATTEND Surgery
DX: K80.10 Calculus of gallbladder with chronic cholecystitis without obstruction (principal); K82.8 Other specified diseases of gallbladder; I10 Essential (primary) hypertension; G47.33 Obstructive sleep apnea (adult) (pediatric); K21.9 Gastro-esophageal reflux disease without esophagitis; E66.9 Obesity, unspecified; Z79.899 Other long term (current) drug therapy; Z68.37 Body mass index [BMI] 37.0-37.9, adult; Z11.2 Encounter for screening for other bacterial diseases
CPT/HCPCS: 87081; 88304; 94664

== ENCOUNTER → 2019-05-24 | Outpatient (CLI) | payer BC ==
[~2019-05-24] MED LIST changes: +ACHD5005 PO
--- NOTE | 2019-05-24 10:34 | Diagnostic Imaging Report ---
INDICATION: Right buttock pain. TECHNIQUE: Three views of the lumbar spine were obtained. FINDINGS: The alignment of the lumbar spine is normal. The vertebral body heights are well-maintained. There is no spondylolysis or spondylolisthesis. No fractures are identified. There are diffuse degenerative changes. IMPRESSION: Mild diffuse lumbar spondylosis and degenerative disc disease; otherwise, unremarkable. Dictated by: Dictated on workstation # [id number]
== END ==
LOC: RAD 09:20
PROVIDERS: ATTEND Family Medicine
DX: M47.816 Spondylosis without myelopathy or radiculopathy, lumbar region (principal); M51.36 Other intervertebral disc degeneration, lumbar region
CPT/HCPCS: 72100

== ENCOUNTER → 2019-06-03 | Outpatient (CLI) | payer BC ==
--- NOTE | 2019-06-03 13:57 | Diagnostic Imaging Report ---
PROCEDURE: MRI lumbar spine. TECHNIQUE: Multiplanar, multisequence MRI of the lumbar spine was performed without contrast. INDICATION: Chronic low back pain. COMPARISON: No prior studies are available for comparison. FINDINGS: Curvature of the lumbar spine is normal. There is minimal retrolisthesis of L4 on L5. There is minimal anterolisthesis of L5 on S1. Patient does appear to have pars defects at the L5-S1 level. Vertebral body heights are maintained. No acute compression fracture is seen. No geographic marrow lesion is seen apart from occasional benign hemangiolipomas. There is some generalized degenerative disc disease, variable disc space narrowing and desiccation, greatest at L5-S1 level. The conus is unremarkable at the L1 level. T12-L1: Central canal is widely patent. Neural foramina are patent. L1-L2: There are mild annular bulging and facet changes. The central canal is patent. Neural foramina are patent. L2-L3: Broad-based disc/osteophyte complex flattens the ventral thecal sac. There are ligamentous thickening and facet changes present as well. This does result in [id number] central canal narrowing. There is significant bilateral lateral recess stenosis as well as moderate bilateral neural foraminal stenosis. L3-L4: Broad-based disc/osteophyte complex indents the ventral thecal sac. There is some additional wide-based midline disc bulge indenting ventral thecal sac. This does result in moderate central canal narrowing. There is severe bilateral lateral recess stenosis as well as significant bilateral neural foraminal stenosis. L4-L5: Broad-based disc bulging is present. Central canal remains patent but there is significant bilateral lateral recess stenosis. Moderate bilateral neural foraminal stenosis is seen. L5-S1: Central canal is widely patent. There is significant bilateral neural foraminal stenosis due to broad-based disc/osteophyte complex. Paraspinous tissues demonstrate T2 hyperintense lesion in the right kidney, perhaps a cyst. IMPRESSION: Multilevel lumbar spondylosis with multilevel central canal, lateral recess and neural foraminal stenosis described level by level above. No acute compression fracture is seen. Dictated by: Dictated on workstation # [id number]
== END ==
LOC: RAD 13:04
PROVIDERS: ATTEND Family Medicine
DX: M48.07 Spinal stenosis, lumbosacral region (principal); M47.816 Spondylosis without myelopathy or radiculopathy, lumbar region; M51.26 Other intervertebral disc displacement, lumbar region; M51.37 Other intervertebral disc degeneration, lumbosacral region
CPT/HCPCS: 72148